=== PATIENT | male | born 1990 | race Caucasian/White ===

== ENCOUNTER 2023-03-20 10:53 | Emergency (ER) | payer MEDICAID ==
[~2023-03-20] VITALS: Ht 188 cm; Wt 145.0 kg
[~2023-03-20 10:53] MED LIST: NORPTMEDS CO
[2023-03-20 11:51] VITALS: BP 89/47; PULSE 95; RESP 16; TEMP 98.2; O2SAT 96
[2023-03-20] MEDS ORDERED: HYDROcodone-ACET 5/325MG TAB PO ONE (13:45)
== END 2023-03-20 14:44 | disposition home or self-care (01) ==
LOC: ER 10:53
DX: S82.831A Other fracture of upper and lower end of right fibula, initial encounter for closed fracture (principal); F17.210 Nicotine dependence, cigarettes, uncomplicated; Y04.2XXA Assault by strike against or bumped into by another person, initial encounter; Y93.89 Activity, other specified; Y92.89 Other specified places as the place of occurrence of the external cause; Y99.8 Other external cause status
CPT/HCPCS: 29515; 73610